=== PATIENT | female | born 1955 | race Caucasian/White ===

== ENCOUNTER 2018-09-21 08:49 | Day surgery (SDC) | payer BC ==
[~2018-09-21] VITALS: Ht 167.6 cm; Wt 88.5 kg
[~2018-09-21 08:49] MED LIST: ASPI81TA52 PO; ASPI81TA85 PO; BIOTPOW20 PO; DOXY-350 PO; FENO1POW PO; GARL10004 PO; GLIM4TAB PO; JANU50TA22 PO; JARD1TAB PO; LATA5OPD OU; LIDOCAINE 2% INJ 100 MG/5 ML SDV (FOR ANES.) As Ordered ONE; LISI-538 PO; MULT1TAB8 PO; OMEG100011 PO; OMEP20CA3 PO; PROPOFOL 200 MG/20 ML VIAL As Ordered ONE; REST0.05 OU; SUPECAP24 PO; VALA500T4 PO; VITA10006 PO; VITA100072 PO; VITA500055 PO; XALA0.007 OU; ZITH250T PO
[2018-09-21] MEDS ORDERED: NS 1,000 ML IV ONE (09:00)
[2018-09-21] MEDS ORDERED: PROPOFOL 200 MG/20 ML VIAL As Ordered ONE ×2 (09:57→10:32)
--- NOTE | 2018-09-21 10:21 | ROOR ---
Patient Name: Juan Patel Procedure Date: 09/21/2018 10:06 AM Date of : 1955 Age: 63 Room: [facility] Gender: Female Note Status: Finalized Procedure: Upper GI endoscopy + Balloon Dilatation Indications: Dysphagia Providers: Gabriel Salvador MD Referring MD: SONJA SORTO Requesting Provider: Medicines: Monitored Anesthesia Care Complications: No immediate complications. Procedure: Pre-Anesthesia Assessment: - The heart rate, respiratory rate, oxygen saturations, blood pressure, adequacy of pulmonary ventilation, and response to care were monitored throughout the procedure. The Endoscope was introduced through the mouth, and advanced to the second part of duodenum. The upper GI endoscopy was accomplished without difficulty. The patient tolerated the procedure well. Findings: The Z-line was regular and was found 40 cm from the incisors. A TTS dilator was passed through the scope. Dilation with an 18-19-20 mm balloon dilator was performed to 20 mm in the entire esophagus. No other significant abnormalities were identified in a careful examination of the stomach. The exam of the duodenum was otherwise normal. Impression: - Z-line regular, 40 cm from the incisors. - Dilation performed in the entire esophagus. - No specimens collected. - The examination was otherwise normal. Recommendation: - Patient has a contact number available for emergencies. The signs and symptoms of potential delayed complications were discussed with the patient. Return to normal activities tomorrow. Written discharge instructions were provided to the patient. - High fiber diet. - Discharge patient to home. - Follow an antireflux regimen. - Continue present medications. - Return to referring physician. - The findings and recommendations were discussed with the patient's family. Gabriel Salvador MD Gabriel Salvador MD 09/21/2018 10:21:26 AM This report has been signed electronically. Number of Addenda: 0 Note Initiated On: 09/21/2018 10:06 AM Estimated Blood Loss: Estimated blood loss: none.
--- NOTE | 2018-09-21 10:36 | ROOR ---
Patient Name: Juan Patel Procedure Date: 09/21/2018 10:07 AM Date of : 1955 Age: 63 Room: [facility] Gender: Female Note Status: Finalized Procedure: Total Colonoscopy to Cecum Indications: Colon cancer screening in patient at increased risk: Family history of 1st-degree relative with colon polyps Providers: Gabriel Salvador MD Referring MD: SONJA SORTO Requesting Provider: Medicines: Monitored Anesthesia Care Complications: No immediate complications. Procedure: Pre-Anesthesia Assessment: - The heart rate, respiratory rate, oxygen saturations, blood pressure, adequacy of pulmonary ventilation, and response to care were monitored throughout the procedure. The Colonoscope was introduced through the anus and advanced to the cecum, identified by appendiceal orifice and ileocecal valve. The colonoscopy was performed without difficulty. The patient tolerated the procedure well. The quality of the bowel preparation was excellent. Findings: The perianal and digital rectal examinations were normal. Non-bleeding internal hemorrhoids were found during retroflexion. The hemorrhoids were small and Grade I (internal hemorrhoids that do not prolapse). One small angioectasia without bleeding was found in the cecum. The exam was otherwise without abnormality on direct and retroflexion views. Impression: - Non-bleeding internal hemorrhoids. - One non-bleeding colonic angioectasia. - The examination was otherwise normal on direct and retroflexion views. - No specimens collected. - The exam was otherwise normal to the cecum. Recommendation: - Patient has a contact number available for emergencies. The signs and symptoms of potential delayed complications were discussed with the patient. Return to normal activities tomorrow. Written discharge instructions were provided to the patient. - High fiber diet. - Discharge patient to home. - Continue present medications. - Repeat colonoscopy in 5 years for screening purposes. - Return to referring physician. - The findings and recommendations were discussed with the patient's family. Gabriel Salvador MD Gabriel Salvador MD 09/21/2018 10:36:07 AM This report has been signed electronically. Number of Addenda: 0 Note Initiated On: 09/21/2018 10:07 AM Estimated Blood Loss: Estimated blood loss: none.
[2018-09-21 11:04] VITALS: BP 105/64
== END 2018-09-21 11:06 | disposition home or self-care (01) ==
LOC: M OPP 08:49
PROVIDERS: ATTEND Internal Medicine Gastroenterology
DX: K64.0 First degree hemorrhoids (principal); K55.20 Angiodysplasia of colon without hemorrhage; R13.10 Dysphagia, unspecified; Z12.11 Encounter for screening for malignant neoplasm of colon; Z83.71 Family history of colonic polyps

== ENCOUNTER → 2019-03-09 | Outpatient (REF) | payer BC ==
[~2019-03-09] MED LIST changes: +LATA0.0013 OU; -LATA5OPD OU; -LIDOCAINE 2% INJ 100 MG/5 ML SDV (FOR ANES.) As Ordered ONE; -PROPOFOL 200 MG/20 ML VIAL As Ordered ONE; -VALA500T4 PO; +VALA500T5 PO; +VITA100018 PO; -VITA100072 PO
[2019-03-09 18:54] LABS: APPEARANCE, URINE CLEAR (CLEAR); BACTERIA, URINE AUTO NEGATIVE (NEGATIVE); BILIRUBIN, URINE AUTO NEGATIVE (NEGATIVE); BLOOD, URINE BLOOD NEGATIVE (NEGATIVE); COLOR, URINE YELLOW (YELLOW); GLUCOSE, URINE (UA) AUTO 3+ mg/dL (NEGATIVE); KETONE, URINE AUTO NEGATIVE (NEGATIVE); LEUKOCYTE ESTERASE, URINE AUTO NEGATIVE (NEGATIVE); NITRITE, URINE AUTO NEGATIVE (NEGATIVE); PROTEIN, URINE AUTO NEGATIVE (NEGATIVE); RBC, URINE AUTO 15 /HPF (0-3); SPECIFIC GRAVITY URINE AUTO 1.023 (1.002-1.035); SQUAMOUS EPITHELIAL CELL UR AU 0 /HPF (0-6); UROBILINOGEN, URINE AUTO 0.2 mg/dL (0.0-2.0); WBC, URINE AUTO 3 /HPF (0-3)
== END ==
LOC: M SMT 17:16
PROVIDERS: ATTEND Nurse Practitioner Women's Health
DX: R82.8 Abnormal findings on cytological and histological examination of urine (principal)

== ENCOUNTER → 2019-03-22 | Outpatient (CLI) | payer BC ==
[2019-03-22 13:08] LABS: CALCIUM LEVEL 9.2 MG/DL (8.8-10.2); CREATININE FOR GFR 1.16 MG/DL (0.55-1.30); GLOMERULAR FILTRATION RATE 50.1 (>45); POTASSIUM SERUM 4.5 MEQ/L (3.5-5.1)
== END ==
LOC: M SMT 11:01
PROVIDERS: ATTEND Nurse Practitioner Women's Health
DX: R31.29 Other microscopic hematuria (principal)

== ENCOUNTER → 2019-03-31 | Outpatient (CLI) | payer BC ==
[~2019-03-31] MED LIST changes: +ISOVUE-370 76% 100ML VIAL (Q9967) As Ordered ONE
--- NOTE | 2019-03-31 11:42 | REP ---
CT of the abdomen pelvis multiphasic scanning without and with IV contrast and without bowel contrast for micro hematuria: Comparison is 08/15/2014. On the comparison study there was a 8 mm calculus in the left renal pelvis. This calculus is no longer present. There are no left ureteral calculi. There is no left hydronephrosis. There are no bladder calculi. On the comparison study there were no right renal calculi. The study today there is a 5 mm calculus posteriorly in the right kidney near the mid pole, nonobstructive. There is no right hydronephrosis. Additionally, there is a new 5 ml calculus in the distal right ureter near the UVJ, not present previously. However, there is no right hydroureter and hydronephrosis. The There are phleboliths in the abdomen and pelvis as previously. There are no renal masses. The hepatic parenchyma is less dense than the spleen suggestive of hepato steatosis. The liver is otherwise are. There is a cholecystectomy. The pancreas, spleen, adrenals and abdominal aorta are unremarkable. There is no bowel distension or obstruction. Mesentery is unremarkable. Pelvis: There is an appendicolith. The appendix is otherwise unremarkable. There is no para appendiceal phlegmon. There is a hysterectomy as previously. The vaginal cuff and adnexa are unremarkable. There is no ascites. There are pelvic phleboliths as previously. The pelvic bowel loops are otherwise unremarkable. Impression: There is a new 5 mm calculus in the distal right ureter near the UVJ. However, there is no right hydroureter and hydronephrosis. There is a new nonobstructive 5 mm calculus in the right kidney. The previous left renal calculus is no longer present. There is no left ureteral calculus. There is no left hydronephrosis. There are no renal masses or cysts. No There is no appendicolith. There is no periappendiceal phlegmon. The appendix is otherwise unremarkable. No bladder calculi are identified. No bladder masses are identified. Electronically Signed by Jordan Peña MD 03/31/2019 11:33 A
== END ==
LOC: M RAD 09:53
PROVIDERS: ATTEND Nurse Practitioner Women's Health
DX: N20.0 Calculus of kidney (principal); N20.1 Calculus of ureter
CPT/HCPCS: 74178; Q9967

== ENCOUNTER → 2019-04-23 | Outpatient (CLI) | payer BC ==
[~2019-04-23] MED LIST changes: +ASPI81TA26 PO; +BACT800T5 PO; +CLIN150C14 PO; +D-50CAP PO; +GARL1TAB PO; -ISOVUE-370 76% 100ML VIAL (Q9967) As Ordered ONE; -OMEP20CA3 PO; +OMEP20CA4 PO; +SUPETAB44 PO; +VITA500C24 PO; +VITA500T PO; +[UNRECOGNIZED DRUG - CODE] SL
[2019-04-23 17:49] LABS: HEMATOCRIT 49.9 % (36.0-47.0); HEMOGLOBIN 16.4 g/dl (12.0-15.5); MEAN CORPUSCULAR HGB CONC 32.9 g/dl (32.0-36.5); MEAN CORPUSCULAR VOLUME 97.3 fl (80.0-96.0); PLATELET COUNT, AUTOMATED 175 10^3/uL (150-450); RED BLOOD COUNT 5.13 10^6/uL (4.00-5.40); WHITE BLOOD COUNT 4.8 10^3/uL (4.0-10.0)
[2019-04-23 18:30] LABS: CALCIUM LEVEL 9.8 MG/DL (8.8-10.2); CREATININE FOR GFR 1.13 MG/DL (0.55-1.30); GLOMERULAR FILTRATION RATE 51.6 (>45); POTASSIUM SERUM 4.7 MEQ/L (3.5-5.1)
== END ==
LOC: M SMT 13:30
PROVIDERS: ATTEND Urology
DX: Z01.818 Encounter for other preprocedural examination (principal); N20.0 Calculus of kidney

== ENCOUNTER 2019-05-14 05:48 | Day surgery (SDC) | payer BC ==
[~2019-05-14] VITALS: Ht 167.6 cm; Wt 90.3 kg
[~2019-05-14 05:48] MED LIST changes: +LevoFLOXacin IV 500 MG in APPROPRIATE DILUENT 1 EA IV ONE
[2019-05-14] MEDS ORDERED: LR 1,000 ML IV ONE (06:00)
[2019-05-14] MEDS ORDERED: LevoFLOXacin(LEVAQUIN)500 MG/100 ML BAG (J1956) As Ordered ONE (06:22)
[2019-05-14] MEDS ORDERED: CONRAY-60 60% 50ML VIAL (Q9961) As Ordered ONE (06:50)
[2019-05-14] MEDS ORDERED: PROPOFOL 200 MG/20 ML VIAL As Ordered ONE (07:12)
[2019-05-14] MEDS ORDERED: fentaNYL 100 MCG/2 ML INJECTION (J3010) As Ordered ONE (07:13)
[2019-05-14] MEDS ORDERED: LIDOCAINE 2% INJ 100 MG/5 ML SDV (FOR ANES.) As Ordered ONE (07:13)
[2019-05-14] MEDS ORDERED: ONDANSETRON 4MG/2ML VIAL (J2405) As Ordered ONE (07:13)
[2019-05-14] MEDS ORDERED: dexameTHASONE 4 MG/ML 1ML VIAL (J1100) As Ordered ONE (07:13)
[2019-05-14] MEDS ORDERED: MIDAZOLAM INJ 2 MG/2 ML VIAL (J2250) As Ordered ONE (07:14)
[2019-05-14] MEDS ORDERED: ePHEDrine SULFATE 25 MG/5 ML(5MG/ML) SYRINGE As Ordered ONE (07:55)
[2019-05-14] MEDS ORDERED: LR 1,000 ML IV SCH (08:45)
[2019-05-14] MEDS ORDERED: PERCOCET 5MG/325MG TAB PO PRN ×2 (08:45→09:00)
[2019-05-14] MEDS ORDERED: fentaNYL 100 MCG/2 ML INJECTION (J3010) IV PRN (08:45)
[2019-05-14] MEDS ORDERED: MEPERIDINE INJ 25 MG/ML VIAL (J2175) IV PRN (08:45)
[2019-05-14] MEDS ORDERED: ONDANSETRON 4MG/2ML VIAL (J2405) IV PRN (08:45)
[2019-05-14] MEDS ORDERED: METOCLOPRAMIDE INJ 10MG/2ML VIAL (J2765) IV PRN (08:45)
--- NOTE | 2019-05-14 09:01 | REP ---
RETROGRADE PYELOGRAM: 05/14/2019. Clinical history: Hematuria. Cystoscopy. Comparison: CT 03/31/2019. Findings: Single view from C-arm fluoroscopy provided to Dr. Bajwa of the urology division Garett of the urology division. Catheter and wire in the right ureter to the right renal pelvis with a wire coiled in the central renal pelvis and some contrast in the collecting system of the right kidney. Fluoroscopy time 6 seconds. Electronically Signed by Magdaleno Elias MD 05/14/2019 03:03 P
[2019-05-14 09:15] VITALS: BP 160/71
--- NOTE | 2019-05-17 11:40 | RO ---
DATE OF PROCEDURE: 05/14/2019 PREPROCEDURE DIAGNOSIS: Right kidney and ureteral stones. POSTPROCEDURE DIAGNOSIS: Right kidney and ureteral stones. PROCEDURE: Cystoscopy, right ureteroscopy with laser lithotripsy and basket extraction of stones, right retrograde pyelogram with intraoperative interpretation of images. SURGEON: Dr. Nathan Bajwa TABLET TESTER: None. ANESTHESIA: General. OPERATIVE INDICATIONS: This is a 63-year-old female who was found to have a 5 mm distal right ureteral stone as well as a 5 mm right kidney stone. She was brought to the operating room today for the above listed procedures. DESCRIPTION OF PROCEDURE: The patient was brought to the operating room where general anesthesia was induced. Prophylactic antibiotics were infused. She was then placed in dorsal lithotomy position and prepped and draped in the usual sterile fashion. The cystoscope was inserted into the urethral meatus and advanced to the bladder. The bladder was then thoroughly examined and no abnormalities were seen. Specifically, no tumors or bladder stones were seen. Both ureteral orifices were orthotopic and effluxed clear urine. At this point, I advanced a guide wire into the right collecting system. I then went up the right collecting system with a short semi-rigid ureteroscope. In the distal ureter, a 5 mm stone was seen. The stone was then fragmented into smaller pieces using a 272 Micron laser fiber. All the fragments were removed using a basket. I then removed the short semi-rigid ureteroscope and advanced the ureteral access sheath up into the right collecting system. I went up the access sheath and went into the right kidney with a flexible ureteroscope and the kidney was thoroughly examined. Inside the kidney, a few small stone fragments were seen. These fragments were removed in a basket. The remainder of the kidney was examined and no additional stones were seen. At this point, a retrograde pyelogram was performed and notable for mild right hydronephrosis and no extravasation. I then removed the ureteroscope and ureteral access sheath and no additional stones were seen within the ureter. Per preoperative discussion, the decision was made not to place a stent per the patient. There did not appear to be any significant ureteral trauma. At this point, the wire was removed. The bladder was emptied of all fluids. This marked the conclusion of the procedure. The patient was then taken out of dorsal lithotomy position, awakened from anesthesia and transported to the recovery room in stable condition. Estimated blood loss: 5 mL. Complications: None. Specimen: Kidney stones. Plan: The patient will followup in the clinic in a few weeks for a postoperative visit. CHARLIE
[2019-05-20 15:06] LABS: CA Oxalate Dihy 30 % (.); Ca Ox Monohydrate 65 % (.)
== END 2019-05-14 09:38 | disposition home or self-care (01) ==
LOC: M SDC 05:48
PROVIDERS: ATTEND Urology
DX: N20.1 Calculus of ureter (principal); N20.0 Calculus of kidney; E11.9 Type 2 diabetes mellitus without complications; I10 Essential (primary) hypertension; E78.5 Hyperlipidemia, unspecified; K21.9 Gastro-esophageal reflux disease without esophagitis; K44.9 Diaphragmatic hernia without obstruction or gangrene; K58.8 Other irritable bowel syndrome; Z79.82 Long term (current) use of aspirin; Z88.0 Allergy status to penicillin; Z79.84 Long term (current) use of oral hypoglycemic drugs; Z79.899 Other long term (current) drug therapy; Z92.21 Personal history of antineoplastic chemotherapy; Z85.6 Personal history of leukemia
CPT/HCPCS: 52356; 74420; 82360; 88300; C1769; C1894; J1100; J1956; J2250; J2405; J3010; Q9961

== ENCOUNTER → 2019-07-27 | Outpatient (CLI) | payer MEDICARE ==
[~2019-07-27] MED LIST changes: -GLIM4TAB PO; +GLIM4TAB3 PO; -LevoFLOXacin IV 500 MG in APPROPRIATE DILUENT 1 EA IV ONE
[2019-07-27 18:28] LABS: BASO % 0.6 % (0.0-1.0); EOS # 0.1 10^3/uL (0.0-0.5); EOS % 2.1 % (0.0-3.0); HEMATOCRIT 53.6 % (36.0-47.0); LYMPH # 2.4 10^3/uL (1.5-5.0); MEAN CORPUSCULAR HEMOGLOBIN 31.6 pg (27.0-33.0); MEAN CORPUSCULAR HGB CONC 31.7 g/dl (32.0-36.5); MEAN CORPUSCULAR VOLUME 99.6 fl (80.0-96.0); MONO # 0.5 10^3/uL (0.0-0.8); NEUTROPHILS # 2.3 10^3/uL (1.5-8.5); NEUTROPHILS % 42.9 % (36.0-66.0); PLATELET COUNT, AUTOMATED 172 10^3/uL (150-450); RED BLOOD COUNT 5.38 10^6/uL (4.00-5.40); WHITE BLOOD COUNT 5.3 10^3/uL (4.0-10.0)
[2019-07-27 19:01] LABS: CALCIUM LEVEL 9.4 MG/DL (8.8-10.2); CREATININE FOR GFR 1.14 MG/DL (0.55-1.30); GLOMERULAR FILTRATION RATE 50.9 (>45); POTASSIUM SERUM 4.3 MEQ/L (3.5-5.1)
== END ==
LOC: M SMT 14:49
PROVIDERS: ATTEND Obstetrics & Gynecology
DX: D07.2 Carcinoma in situ of vagina (principal)

== ENCOUNTER → 2022-02-20 | Outpatient (REF) | payer BC, MEDICARE ==
[~2022-02-20] MED LIST changes: -ASPI81TA85 PO; +ASPI81TA86 PO; -CLIN150C14 PO; +CLIN150C17 PO; -GLIM4TAB3 PO; +GLIM4TAB5 PO; -LISI-538 PO; +LISI20TA33 PO; +OMEP1CAP73 PO; -OMEP20CA4 PO; +VITA-243 PO; -VITA500T PO
[2022-02-20 14:15] LABS: APPEARANCE, URINE CLEAR (CLEAR); BACTERIA, URINE AUTO NEGATIVE (NEGATIVE); BILIRUBIN, URINE AUTO NEGATIVE (NEGATIVE); BLOOD, URINE BLOOD NEGATIVE (NEGATIVE); COLOR, URINE YELLOW (YELLOW); GLUCOSE, URINE (UA) AUTO 1+ mg/dL (NEGATIVE); KETONE, URINE AUTO TRACE mg/dL (NEGATIVE); LEUKOCYTE ESTERASE, URINE AUTO NEGATIVE (NEGATIVE); MUCUS, URINE SMALL (NEGATIVE); NITRITE, URINE AUTO NEGATIVE (NEGATIVE); PROTEIN, URINE AUTO NEGATIVE (NEGATIVE); RBC, URINE AUTO 5 /HPF (0-3); SQUAMOUS EPITHELIAL CELL UR AU 1 /HPF (0-6); UROBILINOGEN, URINE AUTO 0.2 mg/dL (0.0-2.0); WBC, URINE AUTO 4 /HPF (0-3)
== END ==
LOC: M SMT 13:04
PROVIDERS: ATTEND Physician Assistant
DX: R30.0 Dysuria (principal)

== ENCOUNTER → 2022-04-14 | Outpatient (CLI) | payer BC, MEDICARE ==
[~2022-04-14] MED LIST changes: +ACTO30TA15 PO; +JARD1TAB3 PO; +LISI10TA22 PO; +SELE200T10 PO; +VITA-199 PO; +ZINC1TAB2 PO
== END ==
LOC: M LABSMTC 10:07
PROVIDERS: ATTEND Anesthesiology
DX: Z01.818 Encounter for other preprocedural examination (principal); Z11.52 Encounter for screening for COVID-19

== ENCOUNTER → 2022-05-12 | Outpatient (CLI) | payer MEDICARE ==
[~2022-05-12] MED LIST changes: +PIOG1TAB36 PO
== END ==
LOC: M LABSMTC 11:04
PROVIDERS: ATTEND Anesthesiology
DX: Z01.812 Encounter for preprocedural laboratory examination (principal); Z20.822 Contact with and (suspected) exposure to COVID-19

== ENCOUNTER → 2022-06-06 | Outpatient (REF) | payer MEDICARE ==
[~2022-06-06] MED LIST changes: +FLOM0.4C39 PO; +OXYC1TAB23 PO
[2022-06-06 13:54] LABS: APPEARANCE, URINE MANUAL CLEAR (CLEAR); COLOR, URINE MANUAL YELLOW (YELLOW); GLUCOSE, URINE (UA) MANUAL 4+(1000 MG/DL) mg/dL (NEGATIVE); PROTEIN, URINE MANUAL NEGATIVE (NEGATIVE); SPECIFIC GRAVITY,URINE MANUAL 1.025 (1.002-1.035)
[2022-06-06 13:55] LABS: BILIRUBIN, URINE MANUAL NEGATIVE (NEGATIVE); BLOOD URINE MANUAL NEGATIVE (NEGATIVE); KETONE, URINE MANUAL NEGATIVE (NEGATIVE); LEUKOCYTE ESTERASE, URINE MAN NEGATIVE (NEGATIVE); NITRITE, URINE MANUAL NEGATIVE (NEGATIVE); UROBILINOGEN, URINE MANUAL NORMAL (NORMAL)
== END ==
LOC: M SMT 12:51
PROVIDERS: ATTEND Physician Assistant
DX: N20.0 Calculus of kidney (principal)

== ENCOUNTER → 2023-08-11 | Outpatient (CLI) | payer MEDICARE ==
[~2023-08-11] MED LIST changes: -DOXY-350 PO; +DOXY-444 PO; +GALZ50CA PO
[2023-08-11 13:02] LABS: APPEARANCE, URINE HAZY (CLEAR); BACTERIA, URINE AUTO NEGATIVE (NEGATIVE); BILIRUBIN, URINE AUTO NEGATIVE (NEGATIVE); BLOOD, URINE BLOOD NEGATIVE (NEGATIVE); COLOR, URINE YELLOW (YELLOW); GLUCOSE, URINE (UA) AUTO 3+ mg/dL (NEGATIVE); KETONE, URINE AUTO NEGATIVE (NEGATIVE); LEUKOCYTE ESTERASE, URINE AUTO TRACE (NEGATIVE); NITRITE, URINE AUTO NEGATIVE (NEGATIVE); PROTEIN, URINE AUTO NEGATIVE (NEGATIVE); RBC, URINE AUTO 0 /HPF (0-3); SPECIFIC GRAVITY URINE AUTO 1.023 (1.002-1.035); SQUAMOUS EPITHELIAL CELL UR AU 0 /HPF (0-6); UROBILINOGEN, URINE AUTO 0.2 mg/dL (0.0-2.0); WBC, URINE AUTO 8 /HPF (0-3)
== END ==
LOC: M RAD 11:42
PROVIDERS: ATTEND Urology
DX: N20.0 Calculus of kidney (principal)

== ENCOUNTER 2024-04-28 06:39 | Day surgery (SDC) | payer MEDICARE ==
[~2024-04-28] VITALS: Ht 167.6 cm; Wt 90.5 kg
[~2024-04-28 06:39] MED LIST changes: +BACI1TAB20 PO; +DOXY-440 PO; -DOXY-444 PO; +GLIM2TAB29 PO; +HYDR200T46 PO; +LOSA50TA28 PO; +OMEP-173 PO
[2024-04-28] MEDS: NS 1,000 ML IV SCH (07:27)
[2024-04-28] MEDS ORDERED: propofoL 200 MG/20 ML VIAL As Ordered ONE (08:21)
[2024-04-28 08:37] VITALS: TEMP 96.9
[2024-04-28 08:53] VITALS: BP 129/71; O2SAT 97
== END 2024-04-28 09:02 | disposition home or self-care (01) ==
LOC: M OPP 06:39
PROVIDERS: ATTEND Internal Medicine Gastroenterology
DX: Z86.010 Personal history of colon polyps (principal); Z83.719 Family history of colon polyps, unspecified; K64.0 First degree hemorrhoids; K57.30 Diverticulosis of large intestine without perforation or abscess without bleeding; Z79.82 Long term (current) use of aspirin; Z79.84 Long term (current) use of oral hypoglycemic drugs; Z79.899 Other long term (current) drug therapy; Z85.6 Personal history of leukemia; Z92.21 Personal history of antineoplastic chemotherapy; Z92.3 Personal history of irradiation; Z88.0 Allergy status to penicillin; Z91.048 Other nonmedicinal substance allergy status